=== PATIENT | female | born 1950 | race Two or more races ===

== ENCOUNTER 2018-01-28 20:01 | Emergency (ER) | payer OTHER ==
[~2018-01-28] VITALS: Ht 152.4 cm; Wt 68.0 kg
[2018-01-28 20:20] VITALS: BP 209/98
[2018-01-28] MEDS ORDERED: HYDROcodone/APAP 5/325MG 1 TAB TABLET PO ONE (21:00)
[2018-01-28] MEDS ORDERED: DICL50TA4 PO (21:01)
--- NOTE | 2018-01-28 21:02 | PHYS DOC ---
Past Medical History Past Medical History: Arthritis, High Cholesterol, Hypertension Past Surgical History: Tubal ligation Alcohol Use: None Drug Use: None Adult General Chief Complaint Chief Complaint: LOWER EXTREMITY SWELLING HPI HPI Patient is a 67 year old female with history of hypertension, high cholesterol , arthritis, who presents today complaining of 10 out of 10 left knee pain and swelling as well as left ankle pain and swelling that began after she got a cortisone shot today at 1600 in the left knee by Dr. Nunez. Patient denies any known injury. Review of Systems Review of Systems Constitutional: Denies fever or chills [] Eyes: Denies change in visual acuity, redness, or eye pain [] HENT: Denies nasal congestion or sore throat [] Respiratory: Denies cough or shortness of breath [] Cardiovascular: No additional information not addressed in HPI [] GI: Denies abdominal pain, nausea, vomiting, bloody stools or diarrhea [] : Denies dysuria or hematuria [] Musculoskeletal: Reports left knee and left ankle swelling after getting a cortisone shot Integument: Denies rash or skin lesions [] Neurologic: Denies headache, focal weakness or sensory changes [] All other systems were reviewed and found to be within normal limits, except as documented in this note. Current Medications Current Medications Current Medications Medications (Trade) Dose Ordered Sig/Tamra Start Time Stop Time Status Last Admin Dose Admin Acetaminophen/ Hydrocodone Bitart (Lortab 5/325) 2 tab 1X ONCE 01/28/18 21:00 01/28/18 21:01 Allergies Allergies Allergies Coded Allergies Type Severity Reaction Last Updated Verified No Known Drug Allergies 01/28/18 No Physical Exam Physical Exam Constitutional: Well developed, well nourished, no acute distress, non-toxic appearance. [] HENT: Normocephalic, atraumatic, bilateral external ears normal, oropharynx moist, no oral exudates, nose normal. [] Eyes: PERRLA, EOMI, conjunctiva normal, no discharge. [] Neck: Normal range of motion, no tenderness, supple, no stridor. [] Cardiovascular:Heart rate regular rhythm, no murmur [] Lungs & Thorax: Bilateral breath sounds clear to auscultation [] Abdomen: Bowel sounds normal, soft, no tenderness, no masses, no pulsatile masses. [] Skin: Warm, dry, no erythema, no rash. [] Back: No tenderness, no CVA tenderness. [] Extremities: Left lower extremity with no obvious deformity, left knee has small amount of soft tissue swelling, no obvious swelling noted on the left ankle, negative Homans sign to bilateral lower extremities. Full active range of motion to bilateral lower extremities. +2 bilateral pedal pulses. Cap refill less than 2 seconds to bilateral toes. Neurologic: Alert and oriented X 3, normal motor function, normal sensory function, no focal deficits noted. [] Psychologic: Affect normal, judgement normal, mood normal. [] Current Patient Data Vital Signs Vital Signs Date Time Temp Pulse Resp B/P (MAP) Pulse Ox O2 Delivery O2 Flow Rate FiO2 01/28/18 20:20 97.3 68 16 209/98 (135) 95 Room Air 97.3 EKG EKG [] Radiology/Procedures Radiology/Procedures [] Course & Med Decision Making Course & Med Decision Making Pertinent Labs and Imaging studies reviewed. (See chart for details) This is a 67-year-old female patient presenting to the ED today with left knee and left ankle pain and swelling that began after she got a cortisone shot to the left index 1600. No known injury. Negative Homans sign bilaterally. Patient was given hydrocodone in the ED and discharged. Given prescription for diclofenac. Blood pressure was 209/98, history of hypertension, recommended patient to make sure she takes her evening medications and follows up with her own PCP. Dragon Disclaimer Dragon Disclaimer This electronic medical record was generated, in whole or in part, using a voice recognition dictation system. Departure Departure Impression: Primary Impression: Swelling of left knee joint Additional Impressions: Left knee pain Left ankle swelling Left ankle pain Hypertension Disposition: 01 HOME, SELF-CARE Condition: STABLE Referrals: CHELE NUNEZ MD follow up next week Patient Instructions: Knee Pain, [id number] Additional Instructions: You were evaluated in the emergency room for the and ankle pain and swelling. Continue following up with the pain clinic doctor. Take the prescribed medication as needed for pain. Also ensure you are taking your blood pressure medications and follow-up with the primary care doctor. Scripts Diclofenac Sodium (DICLOFENAC SODIUM) 50 Mg Tablet.dr 1 TAB PO BID, #20 TAB 0 Refills Prov: BEAN PETERSON STUNT PERSON 01/28/18 Problem Qualifiers Additional Impressions: Left knee pain Chronicity: acute Qualified Codes: M25.562 - Pain in left knee Left ankle pain Chronicity: acute Qualified Codes: M25.572 - Pain in left ankle and joints of left foot Hypertension Hypertension type: essential hypertension Qualified Codes: I10 - Essential ( primary) hypertension BEAN PETERSON APRN Jan 28, 2018 21:02
== END 2018-01-28 21:13 | disposition home or self-care (01) ==
LOC: ER 20:01
DX: R22.42 Localized swelling, mass and lump, left lower limb (principal); M25.562 Pain in left knee; M25.572 Pain in left ankle and joints of left foot; I10 Essential (primary) hypertension; M19.90 Unspecified osteoarthritis, unspecified site; E78.00 Pure hypercholesterolemia, unspecified
CPT/HCPCS: 99283

== ENCOUNTER → 2018-03-11 | Outpatient (CLI) | payer OTHER ==
[~2018-03-11] MED LIST: DICL50TA4 PO
--- NOTE | 2018-03-11 15:28 | RAD ---
EXAM: AP view both knees DATE: 03/11/2018 12:00 AM INDICATION: OSTEOARTHRITIS BILATERAL KNEES COMPARISON: No Prior FINDINGS: Severe left knee joint osteoarthritis with severe medial compartment joint space narrowing and associated medial and lateral osteophytes. Mild varus angulation. Right knee joint space space is preserved. Small mediolateral prominent osteophytes are seen. No evidence for acute fracture or dislocation IMPRESSION: Bilateral knee joint osteoarthritis, severe on the left. No acute fracture or dislocation. Electronically signed by: Margarito Olivarez MD (03/11/2018 3:23 PM) [id number]
== END | disposition home or self-care (01) ==
LOC: RAD 13:53
PROVIDERS: ATTEND Physical Medicine & Rehabilitation
DX: M17.0 Bilateral primary osteoarthritis of knee (principal); M25.762 Osteophyte, left knee; M25.761 Osteophyte, right knee; M21.162 Varus deformity, not elsewhere classified, left knee
CPT/HCPCS: 73565